=== PATIENT | female | born 1980 | race Caucasian/White ===

== ENCOUNTER 2018-11-15 02:21 | Emergency (ER) | payer SELFPAY ==
[2018-11-15 03:01] LABS: Pregnancy Test - Urine (BHCG) Negative (Negative); Pregu Control Background? CLEAR/WHITE (CLR/WHITE); Pregu Control Bar Appear? YES (CONTROL BAR); Specific Gravity 1.022 (1.002-1.036)
[2018-11-15] MEDS ORDERED: Acetaminophen 500 MG TAB ONE (03:13)
[2018-11-15] MEDS ORDERED: Promethazine HCl 25 MG/ML VIAL ONE (03:13)
[2018-11-15] MEDS ORDERED: Ketorolac Tromethamine 30 MG/ML VIAL ONE (03:13)
== END 2018-11-15 03:51 ==
LOC: MADERS 02:21
DX: G43.909 Migraine, unspecified, not intractable, without status migrainosus (principal)
CPT/HCPCS: 81025; 96372; J1885; J2550